=== PATIENT | female | born 1960 | race Caucasian/White ===

== ENCOUNTER 2017-02-15 16:18 | Emergency (ER) | payer OTHER ==
[2017-02-15 16:18] VITALS: BMI 27.2
--- NOTE | 2017-02-15 16:24 | ED PDOC ---
Arrival/HPI - General Time Seen by Provider: 02/15/17 16:20 Historian: Patient - History of Present Illness Narrative History of Present Illness (Text): 02/15/17 16:24 57 y/o female, no significant pmh, nkda, c/o headache and dizziness s/p head injury x 1 hour. Pt. stated that a wooden cabinet door hit her on the frontal forehead, no LOC, feeling headache with dizziness, no numbness or tingling, no neck or eye injury, no palpitation, no other medical or psychological complaints. Past Medical History - Provider Review Nursing Documentation Reviewed: Yes - Infectious Disease Hx of Infectious Diseases: None - Tetanus Immunization Tetanus Immunization: Unknown - Cardiac Hx Pacemaker: No - Pulmonary Hx Respiratory Disorders: No - Neurological Hx Paralysis: No - HEENT Hx HEENT Disorder: No - Renal Hx Renal Disorder: Yes (left kidney removal) - Endocrine/Metabolic Hx Endocrine Disorders: No - Hematological/Oncological Hx Blood Transfusions: No Hx Blood Transfusion Reaction: No - Integumentary Hx Dermatological Disorder: No - Musculoskeletal/Rheumatological Hx Musculoskeletal Disorders: No - Gastrointestinal Hx Gastrointestinal Disorders: No - Genitourinary/Gynecological Hx Urinary Tract Infection: Yes - Psychiatric Hx Emotional Abuse: No Hx Physical Abuse: No Hx Substance Use: No - Surgical History Hx Appendectomy: Yes Hx Section: Yes Other/Comment: left kidney removal - Anesthesia Hx Anesthesia Reactions: No Hx Malignant Hyperthermia: No - Suicidal Assessment Feels Threatened In Home Enviroment: No Family/Social History - Physician Review Nursing Documentation Reviewed: Yes Family/Social History: Unknown Family HX Smoking Status: Never Smoked Hx Alcohol Use: No Hx Substance Use: No Allergies/Home Meds Allergies/Adverse Reactions: Allergies No Known Allergies Allergy (Verified 02/15/17 16:25) Review of Systems - Review of Systems Constitutional: absent: Fatigue, Fevers Eyes: absent: Vision Changes ENT: absent: Hearing Changes Respiratory: absent: SOB, Cough Cardiovascular: absent: Chest Pain Gastrointestinal: absent: Abdominal Pain, Nausea, Vomiting Genitourinary Female: absent: Vaginal Discharge Musculoskeletal: absent: Arthralgias, Back Pain, Neck Pain Neurological: Headache, Dizziness. absent: Focal Weakness, Gait Changes, Speech Changes, Facial Droop Physical Exam Vital Signs Reviewed: Yes Vital Signs Temp Pulse Resp BP Pulse Ox 02/15/17 17:35 68 18 124/79 98 02/15/17 16:20 98.5 F 70 18 126/87 99 Temperature: Afebrile Blood Pressure: Normal Pulse: Regular Respiratory Rate: Normal Appearance: Positive for: Well-Appearing, Non-Toxic, Comfortable Pain Distress: Mild Mental Status: Positive for: Alert and Oriented X 3 - Systems Exam Head: Present: Tenderness (Lt. frontal forehead), Contusion (Lt. frontal forehead), Swelling (Lt. frontal forehead), Ecchymosis (Lt. frontal forehead), Other (no facial bony tenderness or swelling.). No: Abrasion, Laceration Pupils: Present: PERRL Extroacular Muscles: Present: EOMI Conjunctiva: Present: Normal Ears: Present: NORMAL TM, Normal Canal. No: Erythema Mouth: Present: Moist Mucous Membranes Pharnyx: No: ERYTHEMA, EXUDATE, TONSILS ENLARGED, Peritonsilar Swelling, Uvular Deviation, Soft Palate/Uvular Edema Nose (External): Present: Atraumatic. No: Abrasion, Contusion, Laceration Nose (Internal): Present: Normal Inspection, No Active Bleeding. No: Rhinorrhea , Septal Hematoma, Epistaxis Neck: Present: Normal Range of Motion, Trachea Midline. No: MIDLINE TENDERNESS , Paraspinal Tenderness, Lymphadenopathy Respiratory/Chest: Present: Clear to Auscultation, Good Air Exchange. No: Respiratory Distress, Accessory Muscle Use, Tender to Palpation Cardiovascular: Present: Regular Rate and Rhythm, Normal S1, S2. No: Murmurs Abdomen: Present: Normal Bowel Sounds. No: Tenderness, Distention, Peritoneal Signs Back: Present: Normal Inspection Upper Extremity: Present: Normal Inspection. No: Cyanosis, Edema Lower Extremity: Present: Normal Inspection. No: Edema Neurological: Present: GCS=15, Speech Normal, Motor Func Grossly Intact, Gait Normal, Memory Normal Skin: Present: Warm, Dry, Normal Color. No: Rashes Psychiatric: Present: Alert, Oriented x 3, Normal Insight, Normal Concentration Medical Decision Making ED Course and Treatment: 02/15/17 16:35 -CT head -Tylenol and meclizine -Observe and reassess 02/15/17 17:42 -CT head show no acute traumatic findings except lt. maxillary sinusitis. -Discharge home with augmentin, naproxen, meclizine, stay hydrated, follow up with your own pmd and neurologist/ENT within 2 days, follow up with the employee health within 24 hours, return to the ER for any new or worsening signs or symptoms. - RAD Interpretation Radiology Orders: 02/15/17 16:31 HEAD W/O CONTRAST [CT] Stat PROCEDURE: CT HEAD WITHOUT CONTRAST. HISTORY: head injury from hitting the cabinet door, dizziness COMPARISON: None available. TECHNIQUE: Axial computed tomography images were obtained through the head/brain without intravenous contrast. Radiation dose: Total exam DLP = 843.77 mGy-cm. This CT exam was performed using one or more of the following dose reduction techniques: Automated exposure control, adjustment of the mA and/or kV according to patient size, and/or use of iterative reconstruction technique. FINDINGS: Examination limited by streak artifact from external hair clip. HEMORRHAGE: No intracranial hemorrhage. BRAIN: No mass effect or edema. The prince-white matter differentiation appears intact. Please note that MRI with diffusion imaging is more sensitive in the detection of acute ischemic event. VENTRICLES: No hydrocephalus. CALVARIUM: Unremarkable. PARANASAL SINUSES: Small fluid within the left maxillary sinus. MASTOID AIR CELLS: Unremarkable as visualized. No inflammatory changes. OTHER FINDINGS: None. IMPRESSION: No acute intracranial pathology identified. Small fluid within the left maxillary sinus. Correlate clinically for acute sinusitis. 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 Disposition/Present on Arrival - Present on Arrival Any Indicators Present on Arrival: No History of DVT/PE: No History of Uncontrolled Diabetes: No Urinary Catheter: No History of Decub. Ulcer: No History Surgical Site Infection Following: None - Disposition Have Diagnosis and Disposition been Completed?: Yes Diagnosis: Headache, Dizziness, Head injury, closed, without LOC, Sinusitis Disposition: HOME/ ROUTINE Disposition Time: 17:43 Patient Plan: Discharge Patient Problems: Current Active Problems Problem Status Onset Headache Acute Dizziness Acute Head injury, closed, without LOC Acute Condition: IMPROVED Additional Instructions: -Discharge home with augmentin, naproxen, meclizine, stay hydrated, follow up with your own pmd and neurologist/ENT within 2 days, follow up with the employee health within 24 hours, return to the ER for any new or worsening signs or symptoms. Prescriptions: Amoxicillin/Clavulanate [Augmentin 875 MG-125 MG] 1 tab PO BID #14 tab Meclizine [Antivert] 25 mg PO Q6 #24 tab Naproxen 500 mg PO BID PRN #20 tab PRN Reason: Other Referrals: PCP,NO [Primary Care Provider] - Follow up with primary Tomy Ignacio DO [Doctor Osteopathy] - Follow up with primary Chacho Hamilton MD [Staff Provider] - Follow up with primary Forms: WORK NOTE
[2017-02-15 16:25] VITALS: RESP 18; TEMP 98.5
[2017-02-15 17:35] VITALS: BP 124/79; PULSE 68; O2SAT 98
--- NOTE | 2017-02-15 17:36 | CT ---
PROCEDURE: CT HEAD WITHOUT CONTRAST. HISTORY: head injury from hitting the cabinet door, dizziness COMPARISON: None available. TECHNIQUE: Axial computed tomography images were obtained through the head/brain without intravenous contrast. Radiation dose: Total exam DLP = 843.77 mGy-cm. This CT exam was performed using one or more of the following dose reduction techniques: Automated exposure control, adjustment of the mA and/or kV according to patient size, and/or use of iterative reconstruction technique. FINDINGS: Examination limited by streak artifact from external hair clip. HEMORRHAGE: No intracranial hemorrhage. BRAIN: No mass effect or edema. The prince-white matter differentiation appears intact. Please note that MRI with diffusion imaging is more sensitive in the detection of acute ischemic event. VENTRICLES: No hydrocephalus. CALVARIUM: Unremarkable. PARANASAL SINUSES: Small fluid within the left maxillary sinus. MASTOID AIR CELLS: Unremarkable as visualized. No inflammatory changes. OTHER FINDINGS: None. IMPRESSION: No acute intracranial pathology identified. Small fluid within the left maxillary sinus. Correlate clinically for acute sinusitis.
== END 2017-02-15 18:03 | disposition home or self-care (01) ==
LOC: ED 16:18
DX: S09.90XA Unspecified injury of head, initial encounter (principal); W22.8XXA Striking against or struck by other objects, initial encounter; Y93.89 Activity, other specified; Y92.238 Other place in hospital as the place of occurrence of the external cause; Y99.0 Civilian activity done for income or pay; R51 Headache; R42 Dizziness and giddiness; J32.9 Chronic sinusitis, unspecified

== ENCOUNTER 2017-08-07 07:38 | Emergency (ER) | payer OTHER ==
[2017-08-07 07:45] VITALS: BMI 27.4
[2017-08-07 07:46] VITALS: BP 140/78; PULSE 75; RESP 18; TEMP 98.7; O2SAT 97
[2017-08-07] MEDS ORDERED: Tmp-Smz 800 mg-160 mg DS Tab PO STA (08:00)
[2017-08-07] MEDS ORDERED: DiphenhydrAMINE 12.5 mg/5 ml LIQ UD (5 ml) PO STA (08:03)
--- NOTE | 2017-08-07 08:04 | ED PDOC ---
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 hand. She states that while she was working yesterday she felt something bite her but did not see what it was. She states that last night it began to itch and swell. She woke up this morning with increased swelling and itchiness around the bite. Denies any fever or chills. No nausea or vomiting. (Fransisco Miles) Past Medical History - Infectious Disease Hx of Infectious Diseases: None - Tetanus Immunization Tetanus Immunization: Unknown - Reproductive Menopause: Yes - Cardiac Hx Pacemaker: No - Pulmonary Hx Respiratory Disorders: No - Neurological Hx Paralysis: No - HEENT Hx HEENT Disorder: No - Renal Hx Renal Disorder: Yes (left kidney removal) - Endocrine/Metabolic Hx Endocrine Disorders: No - Hematological/Oncological Hx Blood Transfusions: No Hx Blood Transfusion Reaction: No - Integumentary Hx Dermatological Disorder: No - Musculoskeletal/Rheumatological Hx Musculoskeletal Disorders: No - Gastrointestinal Hx Gastrointestinal Disorders: No - Genitourinary/Gynecological Hx Urinary Tract Infection: Yes - Psychiatric Hx Emotional Abuse: No Hx Physical Abuse: No Hx Substance Use: No - Surgical History Hx Appendectomy: Yes Hx Section: Yes Other/Comment: left kidney removal - Anesthesia Hx Anesthesia Reactions: No Hx Malignant Hyperthermia: No - Suicidal Assessment Feels Threatened In Home Enviroment: No Family/Social History Family/Social History: Unknown Family HX Smoking Status: Never Smoked Hx Alcohol Use: No Hx Substance Use: No Allergies/Home Meds Allergies/Adverse Reactions: Allergies No Known Allergies Allergy (Verified 02/15/17 16:25) Review of Systems - Review of Systems Constitutional: absent: Fevers Eyes: Normal ENT: Normal Respiratory: Normal Cardiovascular: Normal Gastrointestinal: absent: Diarrhea, Nausea, Vomiting Genitourinary Female: Normal Musculoskeletal: Normal Skin: Skin Lesions (R. hand bug bite) Neurological: Normal Endocrine: Normal Hemo/Lymphatic: Normal Psychiatric: Normal Physical Exam Vital Signs Reviewed: Yes Temperature: Afebrile Blood Pressure: Normal Pulse: Regular Respiratory Rate: Normal Appearance: Positive for: Well-Appearing, Non-Toxic, Comfortable Pain Distress: None Mental Status: Positive for: Alert and Oriented X 3 - Systems Exam Head: Present: Atraumatic, Normocephalic Pupils: Present: PERRL Extroacular Muscles: Present: EOMI Conjunctiva: Present: Normal Mouth: Present: Moist Mucous Membranes Neck: Present: Normal Range of Motion Respiratory/Chest: Present: Clear to Auscultation, Good Air Exchange. No: Respiratory Distress, Accessory Muscle Use Cardiovascular: Present: Regular Rate and Rhythm, Normal S1, S2. No: Murmurs Abdomen: Present: Normal Bowel Sounds. No: Tenderness, Distention, Peritoneal Signs Upper Extremity: Present: Other (3cm area of erythema distal to the PIP joint of the 3rd finger of the right hand. No fluctuance. No necrosis. Strength and sensation is intact. ) Lower Extremity: Present: Normal Inspection Neurological: Present: GCS=15, CN II-XII Intact, Speech Normal Skin: Present: Warm, Normal Color. No: Dry, Rashes Psychiatric: Present: Alert, Oriented x 3, Normal Insight Vital Signs Temp Pulse Resp BP Pulse Ox 08/07/17 07:39 98.7 F 75 18 140/78 97 Medical Decision Making ED Course and Treatment: 08/07/17 08:07 57F with Cellulitis of the right 3rd PIP joint 2/2 to insect bite - Bactrim DS 1 tablet now then continue BID for additional 6 days to complete 7 day course - Keflex 500mg Q6 for 5 days - Benadryl symptomatic relief 08/07/17 08:15 (Fransisco Miles) 08/07/17 08:07 57 yo female c/o redness to right hand. Agree with resident note. DDx: Cellulitis, Bug Bite Rx: Bactrim, Keflex, Bendadryl Discharge patient home with f/u with employee health. Advised to return to the ED if symptoms worsen or any other concerns. 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 / has examined the patient and agrees with the treatment plan. Disposition/Present on Arrival - Present on Arrival Any Indicators Present on Arrival: No History of DVT/PE: No History of Uncontrolled Diabetes: No Urinary Catheter: No History of Decub. Ulcer: No History Surgical Site Infection Following: None - Disposition Have Diagnosis and Disposition been Completed?: Yes Disposition Time: 08:09 Patient Plan: Discharge - Disposition Diagnosis: Bug bite, Cellulitis Disposition: HOME/ ROUTINE Patient Problems: Current Active Problems Problem Status Onset Bug bite Acute Cellulitis Acute Condition: STABLE Discharge Instructions (ExitCare): Cellulitis (ED) Additional Instructions: Ms Posadas, thank you for letting us take care of you today. Your provider was Dr. Mahmood. You were treated for Bug Bite, Cellulitis. The emergency medical care you received today was directed at your acute symptoms. If you were prescribed any medication, please fill it and take as directed. It may take several days for your symptoms to resolve. Return to the Emergency Department if your symptoms worsen, do not improve, or if you have any other problems. [facility] Employee Regarding your Work Related Injury, you are instructed to do all of the following by next day: 1. Notify [facility] Employee Health Department of the sustained injury and arrange for any follow-up appointments if needed during the next business day. If the office is closed or no answer is received, please leave a detailed voice message. Message should include your full name, department and airport operations manager, date of injury, date of ED visit if applicable. Employee Health can be reached at [phone]. 2. If there is time lost, notify [facility] Human Resources Department of the work related injury the next business day at [phone]. Thank you for allowing the [employer] team to be part of your care today. If you had an X-Ray or CT scan: A Radiologist will review the ED reading if any change in treatment is needed we will contact you. If you had a blood, urine, or wound culture: It will take several days for the results, if any change in treatment is needed we will contact you. If you had an STI test: It will take 48 hours for the results. Please call after 1 week if you have not heard back. Prescriptions: Cephalexin [Keflex] 500 mg PO Q6 #20 capsule DiphenhydrAMINE [Benadryl] 25 mg PO Q6 #30 cap Sulfamethoxazole/Trimethoprim [Bactrim DS 800 mg-160 mg] 1 tab PO Q12 #20 tab Forms: [employer] (Estonian), WORK NOTE
== END 2017-08-07 08:31 | disposition home or self-care (01) ==
LOC: ED 07:38
DX: S60.561A Insect bite (nonvenomous) of right hand, initial encounter (principal); W57.XXXA Bitten or stung by nonvenomous insect and other nonvenomous arthropods, initial encounter

== ENCOUNTER 2018-05-19 13:49 | Outpatient (CLI) | payer OTHER | END 2018-05-19 13:50 | disposition home or self-care (01) | LOC: LAB 13:49 ==

== ENCOUNTER 2018-05-25 09:42 | Outpatient (CLI) | payer OTHER | END 2018-05-25 09:43 | disposition home or self-care (01) | LOC: RAD 09:43 ==